=== PATIENT | male | born 1955 ===

== ENCOUNTER 2019-09-19 12:55 | Emergency (ER) | payer BC, MEDICARE, OTHER ==
[2019-09-19] MEDS ORDERED: Aspirin 81 MG Tab.Chew PO ONE (13:16)
[2019-09-19] MEDS ORDERED: Sodium Chloride 0.9% 10 ML Syringe FLUSH PRN (13:16)
[2019-09-19] MEDS ORDERED: Morphine 10 MG/ML SDV ONE (13:16)
[2019-09-19] MEDS ORDERED: Heparin Sodium 5,000 Units/ML Vial IVPUSH PRN (13:23)
[2019-09-19] MEDS ORDERED: LORazepam 2 MG/ML SDV IM ONE (13:30)
[2019-09-19] MEDS ORDERED: Nitroglycerin/D5W 25 MG/250 ML BOTTLE IV SCH (13:30)
[2019-09-19] MEDS ORDERED: Haloperidol Lactate 5 MG/ML SDV IM ONE (13:30)
[2019-09-19] MEDS ORDERED: Heparin Sodium/D5W 25,000 UNITS/500 ML BAG IV SCH (13:30)
[2019-09-19] MEDS ORDERED: diphenhydrAMINE 50 MG/ML SDV IM ONE (13:30)
[2019-09-19] MEDS ORDERED: Tenecteplase 50 MG Kit IV STA (13:32)
--- NOTE | 2019-09-19 13:35 | CR ---
DATE OF SERVICE: 09/19/2019 CLINICAL DATA: chest pain Fluid AP supine chest: The comparison made to a prior exam dated 11 May 2016. The heart size is normal. The lungs are clear. No pneumothorax. No pleural effusions. No evidence of acute intrathoracic disease. Dictated by: Esdras Dolan MD 09/19/2019 1:27PM [facility]
[2019-09-19] MEDS ORDERED: LORazepam 2 MG/ML SDV ONE (13:46)
[2019-09-19] MEDS ORDERED: LORazepam 2 MG/ML SDV IVPUSH ONE ×2 (13:48→14:14)
--- NOTE | 2019-09-19 14:03 | EDM.PDOC ---
ED HPI GENERAL MEDICAL PROBLEM - General Chief Complaint: Chest Pain Stated Complaint: HEART Time Seen by Provider: 09/19/19 13:30 Source of Information: Reports: RN Notes Reviewed History Limitations: Reports: No Limitations - History of Present Illness INITIAL COMMENTS - FREE TEXT/NARRATIVE: This patient presents to the ED for evaluation of chest pain. He states the pain started this morning prior to noon. He called his friend who gave him NTG of his own. He used 4 tablets about 15" apart and does report that the pain did go down after the medication but then returns quickly. On arrival he states the pain is excruciating and he is unable to focus to answer questions. He states his has chronic pain "all day, every day, every where" in his body. He states that he does not use medication for the pain. The chest pain he developed today does go up into his neck and down his left arm. He also was initially having trouble breathing and was sweaty. He is yelling, screaming, and writhing on the ED cart. He denies recent illness including fever, cough, or shortness of breath. Onset: Today, Gradual Onset Date: 09/19/19 Onset Time: 08:00 Duration: Constant, Heavy Location: Reports: Chest Quality: Reports: Ache, Sharp, Stabbing, Throbbing Severity: Severe Improves with: Reports: Other Worsens with: Reports: Breathing, Movement Context: Reports: Activity Associated Symptoms: Reports: Diaphoresis, Nausea/Vomiting, Shortness of Breath. Denies: Fever/Chills, Headaches, Syncope, Weakness Treatments SENIOR TREASURY ANALYST: Reports: Other (see below) (nitroglycerin SL x 4) - Related Data Allergies Allergy/AdvReac Type Severity Reaction Status Date / Time No Known Allergies Allergy Verified 09/19/19 13:27 ED ROS GENERAL - Review of Systems Review Of Systems: Comprehensive ROS is negative, except as noted in HPI. ED EXAM, GENERAL - Physical Exam Exam: See Below Exam Limited By: Combative/Threatening General Appearance: Anxious, Severe Distress Eye Exam: Bilateral Eye: PERRL Ears: Normal External Exam Nose: Normal Inspection, Normal Mucosa Throat/Mouth: Normal Inspection, Normal Oropharynx Head: Atraumatic, Normocephalic Neck: Normal Inspection, Supple, Non-Tender, Full Range of Motion Respiratory/Chest: No Respiratory Distress, Lungs Clear, Normal Breath Sounds, No Accessory Muscle Use, Chest Non-Tender Cardiovascular: Regular Rate, Rhythm Extremities: Normal Capillary Refill Neurological: Alert, Oriented Psychiatric: Anxious Skin Exam: Warm, Dry, Intact, Normal Color, No Rash Course - Orders/Labs/Meds Orders: Active Orders 24 hr Category Date Time Status BASIC METABOLIC PANEL,BMP [CHEM] Stat Lab 09/19/19 13:19 Ordered TROPONIN I [CHEM] Stat Lab 09/19/19 13:19 Ordered TYPE AND SCREEN [BBK] Stat Lab 09/19/19 13:19 Received Heparin Sodium Med 09/19/19 13:23 Active 4,000 units IVPUSH .BOLUS PRN Heparin Sodium/D5W [Heparin 25,000 Units in D5W 500 ML] Med 09/19/19 13:30 Active 25,000 units in 500 ml IV TITRATE Nitroglycerin/D5W [Nitroglycerin 25 MG/D5W 250 ML] Med 09/19/19 13:30 Active 25 mg in 250 ml IV TITRATE Sodium Chloride 0.9% [Saline Flush] Med 09/19/19 13:16 Active 10 ml FLUSH ASDIRECTED PRN Saline Lock Insert [OM.PC] Stat Oth 09/19/19 13:16 Ordered Medication Orders Heparin Sodium (Porcine) (Heparin Sodium) 4,000 units IVPUSH .BOLUS PRN PRN Reason: Chest Pain Last Admin: 09/19/19 13:25 Dose: 4,000 units Heparin Sodium/Dextrose (Heparin 25,000 Units In D5w 500 Ml) 25,000 units in 500 mls @ 16.329 mls/hr IV TITRATE JAYDON; Protocol Last Admin: 09/19/19 13:25 Dose: 12 units/kg/hr, 16.329 mls/hr Nitroglycerin/Dextrose (Nitroglycerin 25 Mg/D5w 250 Ml) 25 mg in 250 mls @ 6 mls/hr IV TITRATE JAYDON; Protocol Last Admin: 09/19/19 13:25 Dose: 10 mcg/min, 6 mls/hr Sodium Chloride (Saline Flush) 10 ml FLUSH ASDIRECTED PRN PRN Reason: Keep Vein Open Labs: Laboratory Tests 09/19/19 Range/Units 13:19 WBC 20.9 H* (4.0-11.0) K/uL RBC 4.42 L (4.50-6.50) M/uL Hgb 14.3 (13.0-18.0) g/dL Hct 41.3 (40.0-54.0) % MCV 93 (76-96) fL MCH 32.4 H (27.0-32.0) pg MCHC 34.6 (31.0-35.0) g/dL RDW 14.2 (11.0-16.0) % Plt Count 293 (150-400) K/uL MPV 9.9 (6.0-10.0) fL Neut % (Auto) 80.0 H (45.0-70.0) % Lymph % (Auto) 14.2 L (20.0-40.0) % [place] % (Auto) 5.1 (3.0-10.0) % Eos % (Auto) 0.5 L (1.0-5.0) % Baso % (Auto) 0.2 (0.0-0.5) % Neut # (Auto) 16.71 H (2.00-7.50) K/uL Lymph # (Auto) 2.97 (1.50-4.00) K/uL [place] # (Auto) 1.06 H (0.20-0.80) K/uL Eos # (Auto) 0.11 (0.04-0.40) K/uL Baso # (Auto) 0.05 (0.02-0.10) K/uL Meds: Medications Generic Name Dose Route Start Last Admin Trade Name Freq PRN Reason Stop Dose Admin Heparin Sodium (Porcine) 4,000 units 09/19/19 13:23 09/19/19 13:25 Heparin Sodium IVPUSH 4,000 units .BOLUS PRN Administration Chest Pain Heparin Sodium/Dextrose 25,000 units in 500 mls @ 16.329 mls/hr 09/19/19 13: 30 09/19/19 13:25 Heparin 25,000 Units In D5w 500 Ml IV 12 units/kg/hr TITRATE JAYDON 16.329 mls/hr Administration Protocol 12 UNITS/KG/HR Nitroglycerin/Dextrose 25 mg in 250 mls @ 6 mls/hr 09/19/19 13:30 09/19/19 13 :25 Nitroglycerin 25 Mg/D5w 250 Ml IV 10 mcg/min TITRATE JAYDON 6 mls/hr Administration Protocol 10 MCG/MIN Sodium Chloride 10 ml 09/19/19 13:16 Saline Flush FLUSH ASDIRECTED PRN Keep Vein Open Discontinued Medications Generic Name Dose Route Start Last Admin Trade Name Abbey PRN Reason Stop Dose Admin Aspirin 324 mg 09/19/19 13:16 09/19/19 13:16 Aspirin PO 09/19/19 13:17 324 mg ONETIME ONE Administration Lorazepam Confirm 09/19/19 13:46 Ativan Administered 09/19/19 13:47 Dose 2 mg .ROUTE .STK-MED ONE Morphine Sulfate Confirm 09/19/19 13:16 Morphine Administered 09/19/19 13:17 Dose 10 mg .ROUTE .STK-MED ONE Tenecteplase 35 mg 09/19/19 13:32 09/19/19 13:32 Tnkase IV 09/19/19 13:33 35 mg NOW STA Administration Protocol - Re-Assessments/Exams Free Text/Narrative Re-Assessment/Exam: 09/19/19 14:06 This patient presents to the ED for chest pain. History and clinical findings are most consistent with a NSTEMI. I did contact the Cardiac clinical laboratory assistant at [facility] and spoke with Dr. Millan who did agree to accept this patient in transfer. [facility] activated for air transfer. Patient Given: NTG 0.4 mg SL x 4 SENIOR TREASURY ANALYST Morphine 4 mg Continues combative and threatening to leave. Got off bed and starting removing monitor. Haldol 5 mg Benadryl 50 mg Ativen 2 mg given; patient much more cooperative. Heparin 4000 mg Heparin drip started NTG drip started at 30 mEq per minute 35 mg Tkase given Patient continues to complain of pain but says it is significantly better. COVID TODDLER CAREGIVER swab pending. 09/19/19 14:20 Departure - Departure Time of Disposition: 14:30 Disposition: DC/Tfer to Acute Hospital 02 Reason for Transfer *Q: Other (STEMI) Condition: Fair Clinical Impression: STEMI (ST elevation myocardial infarction) Referrals: PCP,None [Primary Care Provider] - Forms: ED Department Discharge, Interfacility Transfer JASMEET Sepsis Event Note - Focused Exam Date Exam was Performed: 09/19/19 Time Exam was Performed: 14:12 - My Orders Last 24 Hours: My Active Orders 09/19/19 13:16 Sodium Chloride 0.9% [Saline Flush] 10 ml FLUSH ASDIRECTED PRN Saline Lock Insert [OM.PC] Stat 09/19/19 13:19 BASIC METABOLIC PANEL,BMP [CHEM] Stat TROPONIN I [CHEM] Stat TYPE AND SCREEN [BBK] Stat 09/19/19 13:23 Heparin Sodium 4,000 units IVPUSH .BOLUS PRN 09/19/19 13:30 Heparin Sodium/D5W [Heparin 25,000 Units in D5W 500 ML] 25,000 units in 500 ml IV TITRATE Nitroglycerin/D5W [Nitroglycerin 25 MG/D5W 250 ML] 25 mg in 250 ml IV TITRATE - Assessment/Plan Last 24 Hours: My Active Orders 09/19/19 13:16 Sodium Chloride 0.9% [Saline Flush] 10 ml FLUSH ASDIRECTED PRN Saline Lock Insert [OM.PC] Stat 09/19/19 13:19 BASIC METABOLIC PANEL,BMP [CHEM] Stat TROPONIN I [CHEM] Stat TYPE AND SCREEN [BBK] Stat 09/19/19 13:23 Heparin Sodium 4,000 units IVPUSH .BOLUS PRN 09/19/19 13:30 Heparin Sodium/D5W [Heparin 25,000 Units in D5W 500 ML] 25,000 units in 500 ml IV TITRATE Nitroglycerin/D5W [Nitroglycerin 25 MG/D5W 250 ML] 25 mg in 250 ml IV TITRATE
[2019-09-19] MEDS ORDERED: Ondansetron 4 MG/2 ML SDV IVPUSH ONE (14:21)
[2019-09-19] MEDS ORDERED: Ondansetron 4 MG/2 ML SDV ONE (14:30)
== END 2019-09-19 15:03 ==
LOC: LB.ED 12:55
DX: I21.4 Non-ST elevation (NSTEMI) myocardial infarction (principal); Z20.828 Contact with and (suspected) exposure to other viral communicable diseases
CPT/HCPCS: 36415; 71045; 80048; 84484; 85025; 86850; 86900; 86901; 87635; 92977; 93005; 96365; 96367; 96372; 96375; 96376; 99285; A9270; J1200; J1630; J1644; J2060; J2405; J3101; J3490; U0002